=== PATIENT | female | born 1975 | race Caucasian/White ===

== ENCOUNTER 2022-11-11 20:54 | Emergency (ER) | payer MEDICAID, SELFPAY ==
[2022-11-11 20:57] VITALS: BP 169/118; PULSE 97; RESP 16; TEMP 36.6; O2SAT 100
[2022-11-11 21:18] LABS: Bilirubin Negative (Negative); Blood Large (Negative); Clarity Sl Cloudy (Clear); Glucose Negative (Negative); Ketones Negative (Negative); Leukocyte Esterase Large (Negative); Nitrite Negative (Negative); Urobilinogen 0.2 mg/dL (Up to 0.2); pH 6.5 (5-8)
--- NOTE | 2022-11-11 21:18 | ED.GENADUL_ITS ---
Discharge Plan Disposition Patient Disposition: Home Condition: Stable Discharge Details Clinical Impression: UTI (urinary tract infection) Primary Care Provider: None,None ED Provider: Anum Patino Home Meds and New Rx's Prescriptions: New cephalexin 500 mg tablet 500 mg PO BID 4 Days Qty: 8 0RF phenazopyridine [Pyridium] 100 mg tablet 100 mg PO TID PRN (Reason: pain) Qty: 6 0RF Discharge Instructions Instructions: Cephalexin (By mouth), Phenazopyridine (By mouth), Urinary Tract Infection in Women (ED) Additional Instructions: Your labs are concerning for urinary tract infection. Please take the antibiotics as prescribed. Even if symptoms improve, please take the entire course. Please encourage hydration. Please take probiotic or eat yogurt while on the antibiotics. You may use the Pyridium as prescribed to help with symptomatic management. Please make sure you are drinking plenty of fluids. If you develop fever/chills, increased back pain or other new/worsening symptom please seek care urgently once again. I have referred you to local primary care and you should hear from care management regarding follow-up. Please also call women's wellness to schedule follow-up appointment for your routine gynecologic care. Referrals: Jaylin Crum MD [ [facility] STAFF PHYSICIAN] - Medical Decision Making Patient is a pleasant 47-year-old female, otherwise healthy, with chief complaint of urinary frequency, urgency and dysuria. Denies any fevers or chills. States that it began about 3 days ago and has been fairly consistent. States the pain has been low central over the bladder and maximal after the end of urination. Has had a UTI in the past but its been many years since her last 1 and she states that this feels similar. She does endorse some mild back discomfort but no CVA tenderness. denies any vaginal discharge. Has been haivng irregular menses for past year. Sexually active with . On exam, patient appears nontoxic. No peritoneal findings. No CVA tenderness discussion. Will obtain urinalysis. Patient does have allergy to sulfa drugs. She does not have local primary care, will refer to follow-up. UA concerning fro UTI. Will treat with Keflex and pyridium. Encouraged hydration. Discussed supportive care. REturn precautions discussed. Referral to PCP sent. Will send home with meds for this evening until pharmacy open. All of her questions and concerns were addressed, she is in agreement with this plan. HPI General Date/Time Provider Initiated Documentation: 11/11/22 21:07 . Limitations to Documentation: no limitations . Information obtained by: patient and RN notes reviewed . History of Present Illness 47 year old F presents to the emergency department with the chief complaint of Dysuria, increased frequency and urgency, described as moderate and similar to prior episodes (Similar to previous UTI several years ago), w ith intensity rated at 4. Quality is described as burning, and is localized to the pelvis. Patient reports no radiation. Patient started experiencing this day(s) (3) and it has been constant. No relieving factors improve symptom(s), No exacerbating factors reported . Patient notes no other symptoms.. Patient did receive the following treatments prior to arrival, NSAID Related Data Home Medications Medication Instructions Recorded Confirmed cephalexin 500 mg tablet 500 mg PO BID 4 days #8 tabs 11/11/22 phenazopyridine 100 mg tablet 100 mg PO TID PRN pain 6 doses #6 11/11/22 (Pyridium) tabs Previous Rx's Medication Instructions Recorded cephalexin 500 mg tablet 500 mg PO BID 4 days #8 tabs 11/11/22 phenazopyridine 100 mg tablet 100 mg PO TID PRN pain 6 doses #6 11/11/22 (Pyridium) tabs Allergies Allergy/AdvReac Type Severity Reaction Status Date / Time Sulfa (Sulfonamide Allergy Unknown RASH,FEVER Unverified 09/06/20 11:02 Antibiotics) General Stated Complaint: Urinary HÉCTOR: 4 Review of Systems Constitutional Constitutional: Reports as per HPI, Denies chills, Denies fever(s) and Denies poor appetite Cardiovascular Cardiovascular: Denies chest pain Respiratory Respiratory: Denies cough Gastrointestinal Gastrointestinal: Denies abdominal pain, Denies change in bowel habits, Denies nausea and Denies vomiting Genitourinary Genitourinary: Reports as per HPI Musculoskeletal Musculoskeletal: Reports as per HPI Integumentary/Breasts Skin/Breast: Reports as per HPI and Denies rash PFSH All Active Problems (Updated 11/11/22 @ 21:56 by KAN Marinelli) UTI (urinary tract infection) (Acute) Medical History (Updated 11/11/22 @ 21:56 by KAN Marinelli) Abnormal Pap smear of cervix Asthma GERD (gastroesophageal reflux disease) Surgical History (Updated 05/06/18 @ 14:37 by Docracy [place]) Tonsillectomy Family History Mother Diabetes Essential hypertension Diverticulitis Breast cancer Sister Cervical cancer Breast cancer Maternal grandmother Diabetes Breast cancer Maternal aunt Breast cancer Father Pneumonia Maternal grandfather Lung cancer Social History Smoking/Tobacco Use Status: Never Smoking risk assessment performed?: Yes Alcohol Intake: current Alcohol Intake frequency: holidays/special occasions only Drug use: Never Substance use type: does not use Do you feel safe at home: Yes Do you feel safe in your relationship?: Yes Exam Const General: cooperative, healthy appearing, comfortable, no acute distress, well developed and well groomed Nutritional Appearance: well nourished and overweight Orientation: alert and awake Resp Effort & Inspection: normal respiratory effort and no respiratory distress GI Inspection: normal to inspection Palpation: soft, no hepatosplenomegaly, not firm, no guarding, not rigid and nontender Back/Spine/Pelvis Back: no CVA tenderness Skin General skin exam: no rashes or lesions noted Trauma: no lacerations or abrasions Neuro General: patient alert and patient awake Cognition: normal cognition Speech: speech normal Gait: normal gait Psych Appearance: grossly normal and well kempt Mental Status: mental status grossly normal Speech and Movement: speech and movement normal Course Vital Signs Vital signs: Vital Signs Temperature 36.6 C 11/11/22 20:57 Pulse 97 H 11/11/22 20:57 Respiratory Rate 16 11/11/22 20:57 Blood Pressure 169/118 H 11/11/22 20:57 Pulse Oximetry 100 11/11/22 20:57 Temperature 36.6 C 11/11/22 20:57 Temperature Source Temporal Artery Scan 11/11/22 20:57 Pulse 97 H 11/11/22 20:57 Respiratory Rate 16 11/11/22 20:57 Respiratory Effort Normal, Non-Labored 11/11/22 21:12 Blood Pressure 169/118 H 11/11/22 20:57 Blood Pressure Position Sitting 11/11/22 20:57 Pulse Oximetry 100 11/11/22 20:57 Oxygen Delivery Method Room Air 11/11/22 20:57 Oxygen Flow Rate 0 11/11/22 20:57 Pain Level 4 11/11/22 20:57
[2022-11-11 21:26] LABS: Bacteria Many HPF (Negative); C & S Indicated? Yes; Casts Negative LPF (Negative); Crystals Negative HPF (Negative); Epithelial Cells Few HPF (Negative); Mucus Moderate (Negative); WBC >50 HPF (0-5)
[2022-11-11] MEDS: Cephalexin 500 MG CAP, 2 CAPS/BTL PO (22:11)
[2022-11-11] MEDS: Phenazopyridine 100 MG TAB, 2 TABS/BTL PO (22:12)
--- NOTE | 2022-11-12 15:21 | NUR.NOTE ---
Patient needs a PCP, put the referral in the care manger's box for f/u assistance.Nursing Note:
--- NOTE | 2022-11-13 12:44 | CMACTNOTE_ITS ---
- If Service Date Differs Date of service: 11/13/22 Time of Service: 12:44 Care Management Activity Note Sabina is seen in the ED for a UTI. At the request of ED provider, MIKEY coordinates a referral to KAM Moreno, [employer], of [facility], t-doc, to assist Sabina in obtaining a follow up appointment and in establishing care with a PCP. She has Medicaid for insurance.
--- NOTE | 2022-11-14 09:32 | NUR.NOTE ---
Nursing Note: Accessed chart to look up whether or not on antibiotic.
== END 2022-11-11 22:10 | disposition home or self-care (01) ==
PROVIDERS: Emergency Provider Physician Assistant
DX: N39.0 Urinary tract infection, site not specified (principal); J45.909 Unspecified asthma, uncomplicated
CPT/HCPCS: 87077; 99283; 81003; 81015; 87086; 87186; 99284

== ENCOUNTER 2023-12-08 16:44 | Observation (INO) | payer MEDICAID, SELFPAY ==
[2023-12-08] VITALS (26 sets, daily range): BP systolic 129–215; BP diastolic 78–146; PULSE 72–112; RESP 15–27; TEMP 36.6–37.3; O2SAT 96–100
--- NOTE | 2023-12-08 16:30 | DI.CT_ITS ---
Exam(s) CT BRAIN NECK CTA EXAM: CT BRAIN NECK CTA CLINICAL HISTORY: Left arm weakness. TECHNIQUE: Imaging Protocol: Axial CT angiography was performed with multi-slice acquisition and mu lti-planar and MIP reconstructions. CONTRAST MATERIAL: Intravenous: Omnipaque 350 Contrast volume:85 mL COMPARISON: No exams were available for comparison FINDINGS: CT Head W contrast: Ventricles and Extra axial spaces: Normal in size and morphology for the patient's age. Hemorrhage: None. Cerebral parenchyma: No evidence of acute infarct or mass. Midline shift: None. Brainstem/Cerebellum: No acute findings.. Calvarium: Normal. Visualized Paranasal sinuses/Mastoids: Clear. Soft Tissues: Unremarkable. Enhancement: Normal. Dental: Poor dentition. Multiple dental caries. Multiple areas of periapical lucencies. No surroun ding soft tissue abscesses. CTA Brain W: Internal Carotid Arteries: Petrous: Normal. Cavernous: Normal. Cerebral: Normal. Middle Cerebral Arteries: Right: No aneurysm, occlusion or significant stenosis. Left: No aneurysm, occlusion or significant stenosis. Anterior Cerebral Arteries: Right: No aneurysm, occlusion or significant stenosis. Left: No aneurysm, occlusion or significant stenosis. Posterior cerebral Arteries: Right: No aneurysm, occlusion or significant stenosis. Left: No aneurysm, occlusion or significant stenosis. Vertebral Arteries: Right: No aneurysm, occlusion or significant stenosis. Left: No aneurysm, occlusion or significant stenosis. Basilar Artery: No aneurysm, occlusion or significant stenosis. CTA Neck W: Common Carotid: Right: No dissection, occlusion or significant stenosis. Left: No dissection, occlusion or significant stenosis. External Carotid: Right: No dissection, occlusion or significant stenosis. Left: No dissection, occlusion or significant stenosis. Internal Carotid: Right: No dissection, occlusion or significant stenosis. Left: No dissection, occlusion or significant stenosis. Vertebral Artery: Right: No dissection, occlusion or significant stenosis. Left: No dissection, occlusion or significant stenosis. Lung Apices: Normal. Bones: No acute abnormality. Mild degenerative changes. Soft Tissues: Normal. IMPRESSION: 1. CTA brain: Normal CTA examination of the [place]. 2. Head CT: No acute abnormality in the brain. Significant dental disease noted. 3. CTA neck: Normal CTA examination of the neck. RADIATION DOSE DELIVERED: 1,257.77mGy.cm Total DLP DATA REPOSITORY: All CT scans at this facility are submitted to the National Radiology Data Registry (NRDR) Dose Index Registry (DIR) with the [employer] (ACR). RADIATION OPTIMIZATION: All CT scans at this facility use at least one of these dose optimization te chniques: automated exposure control; mA and/or kV adjustment per patient size (includes targeted exa ms where dose is matched to clinical indication); or iterative reconstruction.
--- NOTE | 2023-12-08 16:30 | DI.CT_ITS ---
Exam(s) CT HEAD - STROKE PROTOCOL EXAM: CT HEAD - STROKE PROTOCOL CLINICAL HISTORY: Weakness. TECHNIQUE: Imaging Protocol: Axial computed tomography images with coronal and sagittal reformatted images were created and reviewed COMPARISON: No exams were available for comparison FINDINGS: Ventricles and Extra axial spaces: Normal in size and morphology for the patient's age. Hemorrhage: None. Cerebral parenchyma: No evidence of acute infarct or mass. Midline shift: None. Brainstem/Cerebellum: Normal. Calvarium: Normal. Visualized Paranasal sinuses:Clear. Mastoids: Clear. Soft Tissues: Unremarkable. ORBITS: Unremarkable. PITUITARY: Not enlarged. IMPRESSION: No acute intracranial process. RADIATION DOSE DELIVERED: 684.54mGy.cm Total DLP DATA REPOSITORY: All CT scans at this facility are submitted to the National Radiology Data Registry (NRDR) Dose Index Registry (DIR) with the [employer] (ACR). RADIATION OPTIMIZATION: All CT scans at this facility use at least one of these dose optimization te chniques: automated exposure control; mA and/or kV adjustment per patient size (includes targeted exa ms where dose is matched to clinical indication); or iterative reconstruction.
--- NOTE | 2023-12-08 16:39 | ED.GENADUL_ITS ---
Discharge Plan Disposition Patient Disposition: Admit to [facility] Discharge Details Clinical Impression: Left arm weakness Admit Date/Time: 12/08/23 19:23 Admit Provider: Hill Edmond Attending Provider: Hill Edmond Primary Care Provider: Unknown,Unknown ED Provider: Armando Irwin [facility] General Date/Time Provider Initiated Documentation: 12/08/23 16:46 . HPI Narrative: MDM This is a normothermic and not tachycardic 48-year-old female with left upper extremity weakness progressing over the past 48 hours concerning for the possibility of subacute CVA for which patient will undergo CT angiogram head and neck and dry CT head. Given duration of time since symptoms began patient is not a candidate for tPA. No chest pain to suggest aortic dissection. No pain out of proportion to suggest necrotizing soft tissue infection. No fevers nor nuchal rigidity to suggest meningitis so I do not feel that the patient requires a lumbar puncture. No tonic-clonic activity to suggest seizures I do not feel that the patient requires an EEG. No chest pain so doubt ACS. No rash to suggest zoster. No nystagmus to suggest posterior circulation CVA. Will assess electrolytes and LFTs plus CBC. Will complete tele neuro consult. No ascending weakness to suggest Guillain-Barksdale?. Normal fingerstick blood glucose. Given symptoms progressing over the past 48 hours patient is not a tPA candidate. 5:06 PM CBC lacks anemia thrombocytopenia and leukocytosis. 5:26 PM Negative hCG. 5:30 PM Very mild hypocalcemia. No LFT abnormalities. Mild hyperglycemia but no anion gap and normal bicarbonate??not consistent with DKA. Normal renal function. Normal TSH. Normal reassuring troponin. Very mild hypomagnesemia. 6:15 PM I spoke with Dr. Reed from teleneurology who had assessed the patient. He was concerned about the possibility of stroke for which he recommended MRI brain which I ordered. He advised permissive hypertension for the moment with 324 mg of aspirin. He will fax complete recommendations. He recommends hospitalization for MRI. 7 PM I spoke with Dr. Edmond who agreed graciously to accept the patient for hospitalization. He requested 80 mg of atorvastatin which I ordered and orally currently. I updated the patient on her plan of care. Chronic conditions affecting the care of the patient: N/A History obtained from an outside historian: Paramedics patient's daughter External record review: No [facility] [place] Diagnostic interpretations performed by me: Per my independent interpretation chest x-ray shows: No acute cardiopulmonary process Per my independent interpretation EKG shows: Narrow complex normal sinus rhythm at a rate of 91. Normal axis. Intervals within normal limits. No ST segment abnormalities. T wave flattening in aVL. No acute injury pattern. No prior for comparison. ]Medications: Aspirin Social determinants of health affecting disposition: N/A Management discussed with: Neurology and hospitalist Treatment/interventions considered: N/A Response to therapies provided: N/A HPI This is is a 48-year-old female arrived to the emergency department via paramedics in the setting of left upper extremity weakness that has been progres sing over the past approximately 48 hours. No prior history of similar symptoms. Patient noted that her symptoms worsened when she woke up this morning. He denies dysuria chest pain shortness of breath. She does feel nauseous. She takes no routine medications. She denies ethanol and illicits but does vape tobacco. No fevers. Exam General: Well-appearing in no acute distress speaking in complete sentences. Head: Normocephalic, atraumatic. Eye:[Pupils equal, round reactive to light.] Extraocular eye movements intact. No conjunctival injection. No scleral icterus. Ear, nose, mouth, throat: Grossly normal inspection. Normal voice, handling secretions normally. Neck: Trachea midline. Cardiovascular: Well-perfused distal extremities. Regular rate and rhythm. Respiratory: Nonlabored respiration. Clear lungs bilaterally. Gastrointestinal: Nondistended abdomen. Soft nontender. Musculoskeletal: No edema. Left upper extremity 3-5 strength. Right upper extremity 5 out of 5 strength. Left upper extremity 5 out of 5 strength. Skin: Normal for age and race, grossly normal temperature and turgor. No acute rash. Neurologic: Left upper extremity 3 out of 5 strength. Otherwise right upper extremity and bilateral lower extremities 5 out of 5 strength. No facial droop. No aphasia. No neglect. Please see full NIH stroke scale on neuro assessment. Psychiatric: Mood and manner are appropriate. Grooming and personal hygiene are appropriate. Related Data Home Medications Medication Instructions Recorded Confirmed ibuprofen 200 mg tablet (Advil) 400 mg PO QHS 12/08/23 12/08/23 ibuprofen 200 mg tablet (Advil) 600 mg PO QAM 12/08/23 12/08/23 Allergies Allergy/AdvReac Type Severity Reaction Status Date / Time Sulfa (Sulfonamide Allergy Unknown RASH,FEVER Unverified 12/08/23 17:32 Antibiotics) General HÉCTOR: 4 Medical Decision Making Quality:SDOH Health Related Social Needs: No Data to Display PFSH All Active Problems (Updated 12/08/23 @ 19:03 by Hill Edmond) TIA (transient ischemic attack) (Acute) Left arm weakness (Acute) Medical History Asthma GERD (gastroesophageal reflux disease) Abnormal Pap smear of cervix Surgical History Tonsillectomy Family History Mother Diabetes Essential hypertension Diverticulitis Breast cancer Sister Cervical cancer Breast cancer Maternal grandmother Diabetes Breast cancer Maternal aunt Breast cancer Father Pneumonia Maternal grandfather Lung cancer Social History Smoking/Tobacco Use Status: Current every day Tobacco Type: e-cigarettes Smoking risk assessment performed?: Yes Alcohol Intake: current Alcohol Intake frequency: holidays/special occasions only Drug use: Never Substance use type: does not use Housing: house Do you feel safe at home: Yes Do you feel safe in your relationship?: Yes
--- NOTE | 2023-12-08 16:45 | RT.EKG_ITS ---
APPROVED REPORT Exam: Resting ECG Reason for Exam: Weakness Patient Location: E HR:91 bpm ECG Measurements Heart Rate 91 AXIS ID 141 P 54 QRSd 89 QRS 61 QT 351 T 48 QTc 432 Conclusion Sinus rhythm...normal P axis, V-rate 60- 99 Narrow complex normal sinus rhythm at a rate of 91. Normal axis. Intervals within normal limits. N o ST segment abnormalities. T wave flattening in aVL. No acute injury pattern. No prior for compar apolinar.
--- NOTE | 2023-12-08 16:48 | DI.RAD_ITS ---
Exam(s) XR PORTABLE CHEST AP EXAM: XR PORTABLE CHEST AP CLINICAL HISTORY: Left upper extremity weakness TECHNIQUE: 2D digital imaging was performed. COMPARISON: No exams were available for comparison FINDINGS: LUNGS: Clear. No pleural abnormality seen. HEART: Normal size. AORTA: Normal diameter. BONES: Unremarkable for age. Soft tissues: Unremarkable. IMPRESSION: No acute findings. DATA REPOSITORY: RADIATION DOSE DELIVERED:
[2023-12-08 17:01] LABS: Abs Immature Grans 0.04 10^3/uL (0.0-0.06); Absolute Basophil Count 0.06 10^3/uL (0.0-0.2); Absolute Eosinophil Count 0.22 10^3/uL (0.0-0.7); Absolute Lymphocyte Count 1.43 10^3/uL (1.2-3.4); Absolute Monocyte Count 0.62 10^3/uL (0.1-0.8); Absolute Neutrophil Count 6.21 10^3/uL (1.2-6.7); Basophils % 0.7 %; Eosinophils % 2.6 %; HGB 11.6 g/dL (11.2-15.7); Immature Grans % 0.5 %; Lymphocytes % 16.7 %; MCH 25.8 pg (27.0-33.0); MCHC 32.2 % (32.0-36.0); MCV 80 fL (80-95); MPV 10.3 fL (8.0-11.0); Monocytes % 7.2 %; Neutrophils % 72.3 %; Platelet Count 255 10^3/uL (130-400); RDW 15.4 % (11.7-14.6); RDW-SD 44.7 fL; WBC 8.58 10^3/uL (4.4-10.8)
[2023-12-08] MEDS: Omnipaque 350 MG/ML 100 ML BTL IJ (17:17)
[2023-12-08 17:19] LABS: HCG Qual (Serum) Negative
[2023-12-08] MEDS: Normal Saline - Diluent 50 ML VIAL IJ (17:19)
[2023-12-08 17:29] LABS: ALT 20 U/L (14-59); AST 9 U/L (15-37); Albumin 3.1 g/dL (3.4-5.0); Alkaline Phosphatase 110 U/L (46-116); BUN 12 mg/dL (7-18); Bilirubin, Total 0.3 mg/dL (0.2-1.0); CREATININE 0.7 mg/dL (0.55-1.02); Calcium 8.4 mg/dL (8.5-10.1); Chloride 106 mmol/L (98-107); Estimated GFR 107.95 (mL/min/1.73m2); Glucose 107 mg/dL (74-106); Magnesium 1.7 mg/dL (1.8-2.4); Potassium 3.7 mmol/L (3.5-5.1); Sodium 139 mmol/L (136-145); TSH (W/Ref FT4) 1.14 uIU/mL (0.36-3.74); Troponin I < 50 ng/L (< or =60)
[2023-12-08] MEDS: Normal Saline 500 ML IV (17:34)
[2023-12-08 18:32] LABS: Bilirubin Negative (Negative); Blood Negative (Negative); Clarity Clear (Clear); Glucose Negative (Negative); Ketones Negative (Negative); Leukocyte Esterase Negative (Negative); Nitrite Negative (Negative); Specific Gravity 1.015 (1.005-1.025); Urobilinogen 0.2 mg/dL (Up to 0.2)
--- NOTE | 2023-12-08 19:02 | HPE_ITS ---
Date of service: 12/08/23 Time of Service: 19:02 Assessment and Plan Assessment and plan (1) TIA (transient ischemic attack): Start date: 12/07/23 Status: Acute Assessment and plan: This is a 48-year-old lady with unknown risk for stroke other than tobacco use and obesity. Blood pressure was slightly elevated during her ED visit and she is not on antihypertensives. Because of her presenting symptoms right middle cerebral artery ischemia, she was placed on aspirin with loading dose and high- dose statin with cardiac monitoring overnight for dysrhythmias and follow-up MRI of the brain with echocardiogram and bubble studies in the morning. She is clinically stable and essentially resolved her neurological symptoms. We will have permissive hypertension during this hospital stay for the next 48 to 72 hours. Long-term she should establish with PCP and be evaluated for prediabetes, hypertension long-term and hyperlipidemia. She is a full code. (2) Left arm weakness: Start date: 12/07/23 Status: Acute Assessment and plan: Patient's weakness resolved after visit with the ED and when brought up to the [facility]. She had total left-sided symptoms prior to presentation to the ED. This is in the distribution of the left middle cerebral artery with some element of vertigo and posterior circulation involvement but no visual changes. MRI of the brain will be helpful and long-term she needs to cardiovascular risk. History of Present Illness History of Present Illness Chief Complaint: Sudden onset left sided weakness N arrative: This is a 48-year-old female patient does not see any physician have a history of obesity which is stable and remote history of smoking with vaping presently. She had a history of 2 days of feeling not well with the room spinning when she was laying down but no nausea or vomiting. During the day of admission the patient had left-sided weakness with facial numbness and weakness, left upper extremity and lower extremity weakness but not following. And according to her daughter. She had no headache. She had no incontinence of urine or bowel. She had no syncope. This started at 10 in the morning and lasted till noon then the patient laid down to rest and when she awakened at 2 PM she had residual left upper extremity weakness and facial numbness prompted her to report to the ED. In the emergency room she had decreased strength in left upper extremity being 3 out of 5 with no other focal findings. There is no facial droop and no lower extremity weakness. This the patient her weakness has completely resolved and she had residual left facial numbness or tingling. She had no room spinning or vertiginous symptoms. She still denies headache. CTA of the head and neck were negative for occlusion and patient was admitted for observation with telemetry having unknown medical risk for stroke. Neurology was consulted [facility] and they advised high-dose statin therapy and permissive hypertension. MRI of the brain and echocardiogram with bubble study was ordered for the morning. This is a 69 years old presents to discuss with patient to continue to use patient's stress presents as a persistent for she also was loaded with aspirin and given daily aspirin. She is a full code. Review of Systems Narrative: 13 point review of systems otherwise unrevealing or stable. Patient is obese and this is chronic. PFSH All Active Problems (Updated 12/08/23 @ 19:03 by Hill Edmond) TIA (transient ischemic attack) (Acute) Left arm weakness (Acute) Medical History Asthma GERD (gastroesophageal reflux disease) Abnormal Pap smear of cervix Surgical History Tonsillectomy Family History Mother Diabetes Essential hypertension Diverticulitis Breast cancer Sister Cervical cancer Breast cancer Maternal grandmother Diabetes Breast cancer Maternal aunt Breast cancer Father Pneumonia Maternal grandfather Lung cancer Social History Smoking/Tobacco Use Status: Current every day Tobacco Type: e-cigarettes Smoking risk assessment performed?: Yes Alcohol Intake: current Alcohol Intake frequency: holidays/special occasions only Drug use: Never Substance use type: does not use Housing: house Do you feel safe at home: Yes Do you feel safe in your relationship?: Yes Meds Allergies and Home Medications Allergies Allergy/AdvReac Type Severity Reaction Status Date / Time Sulfa (Sulfonamide Allergy Unknown RASH,FEVER Unverified 12/08/23 17:32 Antibiotics) Home Medications Medication Instructions Recorded Confirmed Type ibuprofen 200 mg tablet (Advil) 400 mg PO QHS 12/08/23 12/08/23 History ibuprofen 200 mg tablet (Advil) 600 mg PO QAM 12/08/23 12/08/23 History Exam Narrative Exam Narrative: General: Patient appears slightly older than age, moderate to morbidly obese. She is in no acute distress. Alert and oriented x 3. HEENT: Normocephalic, coarsened facial features. Eyes with pupils equal and reactive light symmetrically, extraocular movement intact and sclera anicteric. No nystagmus to lateral gaze bilaterally. Oropharynx with moist Koza and poor dentition with missing and carious teeth. Neck: Supple without JVD and no auscultated carotid bruits. Back: Stooped posture without CVA tenderness. Lungs: Aeration and clear to auscultation percussion with no focalizing rales or rhonchi. Breast: Exam deferred. Heart: Regular rate and rhythm with no appreciable murmur or gallop. No rubs. Abdomen: Obese contour, soft nontender to palpation no palpable hepatosplenomegaly. Bowel sounds positive all quadrants. Genitalia/rectal: Exam deferred. Extremities: No clubbing, cyanosis or grossly pitting edema. capillary refill is fair. Skin: Normal color, warm and dry. Neuro: Cranial nerves II through XII grossly intact with tongue protruding in the midline. No focalizing motor deficits and my exam. DTRs are physiologic and symmetrical. No Babinski's. Cerebellar testing was not performed. Psych: Flat affect with depressed mood. No abnormal thought processes. Remote and recent memory intact. Results Imaging Imaging Studies: EXAM: CT BRAIN NECK CTA CLINICAL HISTORY: Left arm weakness. TECHNIQUE: Imaging Protocol: Axial CT angiography was performed with multi- slice acquisition and multi-planar and MIP reconstructions. CONTRAST MATERIAL: Intravenous: Omnipaque 350 Contrast volume:85 mL COMPARISON: No exams were available for comparison FINDINGS: CT Head W contrast: Ventricles and Extra axial spaces: Normal in size and morphology for the patient's age. Hemorrhage: None. Cerebral parenchyma: No evidence of acute infarct or mass. Midline shift: None. Brainstem/Cerebellum: No acute findings.. Calvarium: Normal. Visualized Paranasal sinuses/Mastoids: Clear. Soft Tissues: Unremarkable. Enhancement: Normal. Dental: Poor dentition. Multiple dental caries. Multiple areas of periapical lucencies. No surrounding soft tissue abscesses. CTA Brain W: Internal Carotid Arteries: Petrous: Normal. Cavernous: Normal. Cerebral: Normal. Middle Cerebral Arteries: Right: No aneurysm, occlusion or significant stenosis. Left: No aneurysm, occlusion or significant stenosis. Anterior Cerebral Arteries: Right: No aneurysm, occlusion or significant stenosis. Left: No aneurysm, occlusion or significant stenosis. Posterior cerebral Arteries: Right: No aneurysm, occlusion or significant stenosis. Left: No aneurysm, occlusion or significant stenosis. Vertebral Arteries: Right: No aneurysm, occlusion or significant stenosis. Left: No aneurysm, occlusion or significant stenosis. Basilar Artery: No aneurysm, occlusion or significant stenosis. CTA Neck W: Common Carotid: Right: No dissection, occlusion or significant stenosis. Left: No dissection, occlusion or significant stenosis. External Carotid: Right: No dissection, occlusion or significant stenosis. Left: No dissection, occlusion or significant stenosis. Internal Carotid: Right: No dissection, occlusion or significant stenosis. Left: No dissection, occlusion or significant stenosis. Vertebral Artery: Right: No dissection, occlusion or significant stenosis. Left: No dissection, occlusion or significant stenosis. Lung Apices: Normal. Bones: No acute abnormality. Mild degenerative changes. Soft Tissues: Normal. IMPRESSION: 1. CTA brain: Normal CTA examination of the [place]. 2. Head CT: No acute abnormality in the brain. Significant dental disease noted. 3. CTA neck: Normal CTA examination of the neck. Labs 12/09/23 05:43 12/09/23 05:43 Labs: Laboratory Results - last 24 hr 12/08/23 12/08/23 16:52 18:20 WBC 8.58 RBC 4.50 Hgb 11.6 Hct 36.0 MCV 80 MCH 25.8 L MCHC 32.2 RDW 15.4 H Plt Count 255 MPV 10.3 Immature Gran % 0.5 Neutrophils % 72.3 Lymphocytes % 16.7 Monocytes % 7.2 Eosinophils % 2.6 Basophils % 0.7 Nucleated RBC % 0.0 Absolute Neutrophils 6.21 Absolute Lymphocytes 1.43 Absolute Monocytes 0.62 Absolute Eosinophils 0.22 Absolute Basophils 0.06 Sodium 139 Potassium 3.7 Chloride 106 Carbon Dioxide 24.0 Anion Gap 9.0 BUN 12 Creatinine 0.7 Est GFR (CKD-EPI 2020) 107.95 Glucose 107 H Calcium 8.4 L Magnesium 1.7 L Total Bilirubin 0.3 AST 9 L ALT 20 Alkaline Phosphatase 110 Troponin I < 50 Total Protein 7.0 Albumin 3.1 L TSH 1.14 Serum HCG, Qual Negative Urine Color Yellow Urine Clarity Clear Urine pH 7.0 Ur Specific [place] 1.015 Urine Protein Negative Urine Ketones Negative Urine Blood Negative Urine Nitrite Negative Urine Bilirubin Negative Urine Urobilinogen 0.2 Ur Leukocyte Esterase Negative Urine Glucose Negative Last Vital Signs Temp 36.6 C 12/08/23 17:44 Pulse 93 H 12/08/23 17:30 Resp 15 12/08/23 17:31 BP 176/96 H 12/08/23 17:30 Pulse Ox 100 12/08/23 17:31 Time Spent Time spent with Patient: 55-74 minutes Time was spent: preparing to see the patient(eg.review tests), obtaining and/or reviewing separately otained hiistory, ordering medications,tests, procedures, referring, communicating with other health health care technician, indepentently interpreting results, counseling the patient and care coordination
[2023-12-08] MEDS: Ondansetron O.D.T. 4 MG TABEF PO (19:32)
[2023-12-08] MEDS: Atorvastatin 40 MG TAB 80 MG PO (19:32)
[2023-12-08] MEDS: Aspirin 81 MG CHEW 324 MG CH (19:32)
[2023-12-08] MEDS: Meclizine 25 MG TAB PO (19:33)
[2023-12-08] MEDS: Normal Saline Flush 10 ML SYR IVP (21:24)
[2023-12-08] MEDS: Heparin 5,000 UNITS/ML VIAL 5000 UNITS SC (21:24)
[2023-12-09 02:44] VITALS: BP 124/76; PULSE 75; RESP 16; TEMP 37; O2SAT 98
[2023-12-09 06:18] LABS: HCT 34.8 % (36.0-46.0); HGB 11.3 g/dL (11.2-15.7); MCHC 32.5 % (32.0-36.0); MCV 80 fL (80-95); MPV 10.9 fL (8.0-11.0); Platelet Count 250 10^3/uL (130-400); RBC 4.34 10^6/uL (3.93-5.22); RDW 15.5 % (11.7-14.6); RDW-SD 44.8 fL; WBC 7.68 10^3/uL (4.4-10.8)
[2023-12-09 06:37] LABS: ALT 19 U/L (14-59); AST 11 U/L (15-37); Albumin 2.9 g/dL (3.4-5.0); Alkaline Phosphatase 102 U/L (46-116); Anion Gap 8.6 mmol/L (3-11); BUN 10 mg/dL (7-18); Bilirubin, Total 0.4 mg/dL (0.2-1.0); CO2 25.4 mmol/L (21.0-32.0); CREATININE 0.7 mg/dL (0.55-1.02); Calcium 8.1 mg/dL (8.5-10.1); Chloride 107 mmol/L (98-107); Estimated GFR 107.95 (mL/min/1.73m2); Glucose 91 mg/dL (74-106); Magnesium 1.8 mg/dL (1.8-2.4); Potassium 3.7 mmol/L (3.5-5.1); Sodium 141 mmol/L (136-145); Total Protein 6.6 g/dL (6.4-8.2)
[2023-12-09 07:19] VITALS: BP 128/66; PULSE 77; RESP 18; TEMP 36.9; O2SAT 98
--- NOTE | 2023-12-09 08:00 | DI.US_ITS ---
APPROVED REPORT EXAM: Comprehensive 2D, Doppler, and color-flow Echocardiogram Patient Location: In-Patient Room/Bed: [address] Team Leader: Miladys Boyer RDCS (AE) Indications: TIA with left arm weakness Echo Enhancing Agent Indication: Rule out Shunt Agent(s) / Amount(s) Used: Agitated Saline 30.0 cc Comments: Contrast study was performed with 3 IV injections of 10ccs of agitated normal saline, at re st, with cough and post valsalva maneuver. Negative contrast study for shunt flow. Other Information Study Quality: Adequate. Technically limited study due to body habitus. Conclusion Normal left ventricular wall thickness and chamber size. Ejection fraction is 60%. Wall motion is n ormal Normal right ventricular size and function Both atria are normal in size There is no intracardiac shunt identified with injection of agitated saline There is no structural or hemodynamically significant valvular disease Wall motion Left Ventricle The left ventricle is normal size. The left ventricular systolic function is normal. The left ventric ular ejection fraction is within the normal range. There is normal left ventricular wall thickness. T here is normal LV segmental wall motion. There is no ventricular septal defect visualized. LVEF is 60 %. Right Ventricle The right ventricle is normal size. The right ventricular systolic function is normal. Atria The left atrium size is normal. The right atrium size is normal. The interatrial septum is intact wit h no evidence for an atrial septal defect. Saline bubble contrast intravenous injection does not dem onstrate PFO. Aortic Valve The aortic valve is normal in structure. Aortic valve is trileaflet. There is no aortic valvular sten osis. No aortic regurgitation is present. Mitral Valve The mitral valve is normal in structure. No evidence of mitral valve stenosis. Trace mitral regurgita tion. Tricuspid Valve The tricuspid valve is normal in structure. There is no tricuspid valve stenosis. Trace tricuspid reg urgitation. Unable to assess PA pressure. Pulmonic Valve Pulmonic valve is not well visualized. There is no pulmonic valvular stenosis. There is no pulmonic v alvular regurgitation. Great Vessels The aortic root is normal in size. The ascending aorta is normal in size. Aortic arch is normal in ca liber. IVC is normal in size and collapses >50% with inspiration. Pericardium There is no pericardial effusion. 2D Dimensions IVSD d PLAX 0.76 cm F: 0.6-1.0 Ao Root d 2.83 cm F: 2.7 - 3.3 LVPW d PLAX 0.91 cm F: 0.6 - 1.0 Ao Asc Diam d 3.09 cm F: 2.3 - 3.1 LVID d PLAX 4.58 cm F: 3.8 - 5.2 LVDs 3.15 cm F: 2.2 - 3.5 LV EF Teichholz 58.9 % FS 31.13 % LV EDV (Teich) 96.1 mL LV ESV (Teich) 39.5 mL M-Mode TAPSE 2.07 cm (M/F) >1.7 Auto EF LV EDV A4C 131.1 mL LV EDV A2C 121.3 mL LV EDV BP 126.4 mL LV ESV A4C 54.5 mL LV ESV A2C 49.3 mL LV ESV BP 51.1 mL LVEF(%) A4C 58.5 % LVEF(%) A2C 59.4 % LVEF(%) BP 59.6 % LV SV A4C 76.6 ml LV SV A2C 72.1 ml LV SV BP 75.3 ml LV CO A4C 5.4 L/min LV CO A2C 5.5 L/min LV CO BP 5.4 L/min HR A4C 70.29 BPM HR A2C 76.27 BPM LV EDV Index (BP) LA Volume LA Length A4C 5.7 cm LA Length A2C 4.7 cm LA Area A4C s 18.87 cm2 LA Area A2C s 16.02 cm2 LA Vol A4C A-L 53.44 mL LA Vol A2C A-L 46.76 mL LA Vol Biplane A-L 55.1 mL LA Vol/BSA A4C A-L LA Vol/BSA A2C A-L LA Vol/BSA BP A-L 27.1 mL/m2 LA Vol A4C MOD 50.2 mL LA Vol A2C MOD 43.1 mL LA Vol BP MOD 51.2 mL RA Volume RA Area A4C 11.5 cm2 RA ESV A4C (A-L) 23.9mL RA Vol/BSA A4C A-L RA Length A4C 4.7 cm RA ESV A4C (MOD) 22.3mL LV Diastology MV E' medial 0.128 (>0.07 m/s) MV E Vmax 1.19 (0.4-1.3 m/s) MV E/E' MED 9.28 (<14) MV A Vmax 0.70 (0.4-1.3 m/s) MV E' lateral 0.164 (>0.1 m/s) E/A Ratio 1.7 MV E/E' LAT 7.24 (<14) MV E' Average 0.146 m/s MV E/E'(average) 8.13 Aortic Valve AoV Vmax 1.56 m/s LVOT Vmax 1.46 m/s AoV Peak Grad 9.7 mmHg LVOT Peak Grad 8.5 mmHg AoV Area (Vmax) 2.94 cm2 LVOT VTI 0.282 m AoV VTI 0.319 m LVOT Mean Grad 5.5 mmHg AoV Mean Maldonado. 1.08 m/s LVOT SV 88.57 mL AoV Mean Grad 5.3 mmHg LVOT Diam s 2.00 cm AoV Area (VTI) 2.77 cm2 Velocity Ratio 0.94 Mitral Valve MV DT 192 (160-240 msec) MV Vmax TIPS 1.33 m/s MV Mean Grad 3.1 (<2mmHg) MV VTI 0.379 m Pulmonary Valve PV Vmax 1.44 (0.5-1.5 m/s) RVOT Vmax 1.08 m/s PV Peak Grad 8.3 mmHg RVOT Peak Gr. 4.7 mmHg PV Mean Maldonado 1.03 m/s RVOT VTI 0.215 m PV Mean Grad 4.8 mmHg RVOT Mean Gr. 2.6 mmHg Tricuspid Valve RA Pressure 3.00 mmHg TV S' 0.15 m/s
--- NOTE | 2023-12-09 08:00 | DI.MRI_ITS ---
Exam(s) MR BRAIN WO EXAM: MR BRAIN WO CLINICAL HISTORY: TIA with left arm weakness TECHNIQUE: Multiplanar multisequence MRI of the brain was performed. COMPARISON: CT CT HEAD - STROKE PROTOCOL from 12/08/2023 FINDINGS: VENTRICLES AND EXTRA AXIAL SPACES: Normal in size and morphology for the patient's age. MIDLINE SHIFT: None. CEREBRAL PARENCHYMA: No focus of restricted diffusion to suggest acute infarct. No space-occupying le lisbeth identified. No abnormal high signal lesions in the white matter. HEMORRHAGE: None. BRAINSTEM/CEREBELLUM: Normal. VISUALIZED PARANASAL SINUSES/MASTOIDS:Clear. Vasculature: Normal flow void. PITUITARY GLAND: Unremarkable. ORBITS: Unremarkable. IMPRESSION: Unremarkable MRI of the brain. DATA REPOSITORY:
[2023-12-09] MEDS: Aspirin 81 MG CHEW PO (08:03)
[2023-12-09] MEDS: Normal Saline Flush 10 ML SYR IVP (08:04)
--- NOTE | 2023-12-09 09:39 | PGE_ITS ---
Date of Service Date of service: 12/09/23 Time of Service: 09:39 Assessment and Plan Assessment and plan (1) TIA (transient ischemic attack): Start date: 12/07/23 Status: Acute Assessment and plan: This is a 48-year-old lady with unknown risk for stroke other than tobacco use and obesity. Blood pressure was slightly elevated during her ED visit and she is not on antihypertensives. Because of her presenting symptoms right middle cerebral artery ischemia, she was placed on aspirin with loading dose and high- dose statin with cardiac monitoring overnight for dysrhythmias and follow-up MRI of the brain with echocardiogram and bubble studies in the morning. She is clinically stable and essentially resolved her neurological symptoms. We will have permissive hypertension during this hospital stay for the next 48 to 72 hours. Long-term she should establish with PCP and be evaluated for prediabetes, hypertension long-term and hyperlipidemia. She is a full code. (2) Left arm weakness: Start date: 12/07/23 Status: Acute Assessment and plan: Patient's weakness resolved after visit with the ED and when brought up to the [facility]. She had total left-sided symptoms prior to presentation to the ED. This is in the distribution of the left middle cerebral artery with some element of vertigo and posterior circulation involvement but no visual changes. MRI of the brain will be helpful and long-term she needs to cardiovascular risk. Objective Last Vital Signs Temp 36.9 C 12/09/23 07:19 Pulse 77 12/09/23 07:19 Resp 18 12/09/23 07:19 BP 128/66 12/09/23 07:19 Pulse Ox 98 12/09/23 07:19 Laboratory Results - last 24 hr 12/08/23 12/08/23 12/09/23 16:52 18:20 05:43 WBC 8.58 7.68 RBC 4.50 4.34 Hgb 11.6 11.3 Hct 36.0 34.8 L MCV 80 80 MCH 25.8 L 26.0 L MCHC 32.2 32.5 RDW 15.4 H 15.5 H Plt Count 255 250 MPV 10.3 10.9 Immature Gran % 0.5 Neutrophils % 72.3 Lymphocytes % 16.7 Monocytes % 7.2 Eosinophils % 2.6 Basophils % 0.7 Nucleated RBC % 0.0 Absolute Neutrophils 6.21 Absolute Lymphocytes 1.43 Absolute Monocytes 0.62 Absolute Eosinophils 0.22 Absolute Basophils 0.06 Sodium 139 141 Potassium 3.7 3.7 Chloride 106 107 Carbon Dioxide 24.0 25.4 Anion Gap 9.0 8.6 BUN 12 10 Creatinine 0.7 0.7 Est GFR (CKD-EPI 2020) 107.95 107.95 Glucose 107 H 91 Calcium 8.4 L 8.1 L Magnesium 1.7 L 1.8 Total Bilirubin 0.3 0.4 AST 9 L 11 L ALT 20 19 Alkaline Phosphatase 110 102 Troponin I < 50 Total Protein 7.0 6.6 Albumin 3.1 L 2.9 L TSH 1.14 Serum HCG, Qual Negative Urine Color Yellow Urine Clarity Clear Urine pH 7.0 Ur Specific [place] 1.015 Urine Protein Negative Urine Ketones Negative Urine Blood Negative Urine Nitrite Negative Urine Bilirubin Negative Urine Urobilinogen 0.2 Ur Leukocyte Esterase Negative Urine Glucose Negative
--- NOTE | 2023-12-09 09:42 | DSE_ITS ---
Date of service: 12/09/23 Time of Service: 09:42 DS: Diagnosis Discharge Diagnosis (1) TIA (transient ischemic attack): Status: Acute (2) Left arm weakness: Status: Acute Discharge Plan Disposition Patient Disposition: Home Condition: Improving Discharge Details Reason For Visit: TIA with left arm weakness Admit Date/Time: 12/08/23 19:23 Admit Provider: Hill Edmond Attending Provider: Hill Edmond Primary Care Provider: Unknown,Unknown Hospital Course Hospital Course: This 48-year-old morbidly obese female patient with a past medical history of reported post-gestational eclampsia, remote tobacco use, currently vaping reported to the ED at [facility] on 12/08/2023 for evaluation of left-sided weakness with facial numbness and weakness, left upper extremity and lower extremity weakness without fall. The patient reported today history of malaise with the room spinning when laying down but without nausea or vomiting. On arrival to the emergency room the patient was found to have decreased strength at 3/5 to left upper extremity without any other focal findings. Her systolic blood pressure ranged from 144-215 with a diastolic ranging from 93-1 [address] emergency room. CT of the head and neck were negative for occlusion and stenosis. Neurology at [facility] was consulted and advised for high-dose statin therapy and permissive hypertension. The patient was admitted by the hospitalist for observation with telemetry. Echocardiogram ultrasound with bubble study showed no abnormal findings and an LVEF of 60%. Completed MRI of the brain was unremarkable. Hemoglobin A1C was 5.6. Telemetry reading overnight showed no ectopy as the patient remained in a normal sinus rhythm. The patient reported having frequent headaches without a diagnostic of migraine. Those episodes reportedly preceded other events with similar presentation that triggered her to come to the emergency room. Today, the patient is normotensive, neurologically at baseline with resolution of all are focal symptoms. Triglycerides were 155 and patient counseled to address modifiable causes. The patient was counseled on the need to obtain a PCP for weight, prediabetes, hyperlipidemia and hypertension management, as those are factors know to increase the risk of stroke. The patient will need to follow with a primary care practitioner within 7 days of discharge. Discussed with Dr. Montoya Home Meds and New Rx's Prescriptions: Continued ibuprofen [Advil] 200 mg tablet 600 mg PO QAM ibuprofen [Advil] 200 mg tablet 400 mg PO QHS Discharge Instructions Stand Alone Forms: Nursing Discharge Form Referrals: Jacque Bush MD [ [facility] STAFF PHYSICIAN] - Activity:: Activity as Tolerated Equipment/Supplies:: No Equipment Needed Diet:: heart healthy Discharge Orders Discharge Orders: Discharge Order (Routine); Ordered 12/09/23 Ordered By: Ella Quintero DS: Summary Time Spent with Patient providing and/or coordinating discharge services: Greater than 30 minutes Status at Discharge Functional status at discharge: independent ambulation Overall status at discharge: patient is back to baseline Mental Status: mental status grossly normal Speech and Movement: speech and movement normal Mood: congruent mood Affect: normal affect Quality:SDOH Health Related Social Needs: No Data to Display Exam Narrative Exam Narrative: Constitutional The patient is sitting in bed mostly comfortable reports chronic neck pain with movement, usually takes ibuprofen at home and agrees to receive the ibuprofen offered The patient is without acute distress and has obese body habitus HENMT: Head is atraumatic, normocephalic, no lymphadenopathy. Facial structures with normal appearance Eyes: Well aligned, intact ROM Neck: Normal ROM Neuro:alert and oriented to self, person, place, time and situation. No neurological focal deficit, PERRLA on ambient light Resp: Normal respiratory pattern, speaks in full sentences, clear lung bilaterally Cardio:Tele SR HR 65 regular rhythm, S1, S2, no murmur, capillary refill<3 sec., bilateral radial and dorsalis pedis pulses are positive, palpable GI: Abdomen is not distended, soft and non tender, bowel sounds are present Back/spine/Pelvis: No back tenderness, normal alignment Integumentary: No skin lesions or rash Extremities: strength 5/5 to bilateral lower and upper extremities Psych: RASS 0, congruent mood and normal affect. Psych Mental Status: mental status grossly normal Speech and Movement: speech and movement normal Mood: congruent mood Affect: normal affect DS: Data Vitals/I&O Vitals and I&O: Vital Signs Temperature 36.9 C 12/09/23 07:19 Temperature Source Tympanic 12/09/23 07:19 Pulse 77 12/09/23 07:19 Pulse Rhythm Regular 12/09/23 00:25 Pulse 90 12/08/23 20:07 Respiratory Rate 18 12/09/23 07:19 Respiratory Effort Normal, Non-Labored 05/21/24 00:25 Respiratory Depth Normal 12/09/23 00:25 Respiratory Pattern Normal 12/09/23 00:25 Blood Pressure 128/66 12/09/23 07:19 Blood Pressure Mean 155 12/08/23 18:16 Blood Pressure Position Supine 12/08/23 16:48 Pulse Oximetry 98 12/09/23 07:19 Oxygen Delivery Method Room Air 12/09/23 07:19 Oxygen Flow Rate 0 12/09/23 07:19 Pain Level 0 12/09/23 07:19 Intake & Output 12/08/23 12/08/23 12/09/23 11:59 23:59 11:59 Intake Total 500 / 500 Balance 500 / 500 Weight 99.79 kg 122.6 kg Intake: IV 500 / 500 Other: Comment per patient she hasbeen up to void pT stated she voided. Voiding Methods Toilet Data Completed and Pending Labs on day of discharge: Labs from last 24 hours 12/09/23 12/08/23 12/08/23 05:43 18:20 16:52 WBC 7.68 8.58 RBC 4.34 4.50 Hgb 11.3 11.6 Hct 34.8 L 36.0 MCV 80 80 MCH 26.0 L 25.8 L MCHC 32.5 32.2 RDW 15.5 H 15.4 H Plt Count 250 255 MPV 10.9 10.3 Immature Gran % 0.5 Neutrophils % 72.3 Lymphocytes % 16.7 Monocytes % 7.2 Eosinophils % 2.6 Basophils % 0.7 Nucleated RBC % 0.0 Absolute Neutrophils 6.21 Absolute Lymphocytes 1.43 Absolute Monocytes 0.62 Absolute Eosinophils 0.22 Absolute Basophils 0.06 Sodium 141 139 Potassium 3.7 3.7 Chloride 107 106 Carbon Dioxide 25.4 24.0 Anion Gap 8.6 9.0 BUN 10 12 Creatinine 0.7 0.7 Est GFR (CKD-EPI 2020) 107.95 107.95 Glucose 91 107 H Calcium 8.1 L 8.4 L Magnesium 1.8 1.7 L Total Bilirubin 0.4 0.3 AST 11 L 9 L ALT 19 20 Alkaline Phosphatase 102 110 Troponin I < 50 Total Protein 6.6 7.0 Albumin 2.9 L 3.1 L TSH 1.14 Serum HCG, Qual Negative Urine Color Yellow Urine Clarity Clear Urine pH 7.0 Ur Specific [place] 1.015 Urine Protein Negative Urine Ketones Negative Urine Blood Negative Urine Nitrite Negative Urine Bilirubin Negative Urine Urobilinogen 0.2 Ur Leukocyte Esterase Negative Urine Glucose Negative PFSH All Active Problems (Updated 12/08/23 @ 19:03 by Hill Edmond) TIA (transient ischemic attack) (Acute) Left arm weakness (Acute) Medical History Asthma GERD (gastroesophageal reflux disease) Abnormal Pap smear of cervix Surgical History Tonsillectomy Family History Mother Diabetes Essential hypertension Diverticulitis Breast cancer Sister Cervical cancer Breast cancer Maternal grandmother Diabetes Breast cancer Maternal aunt Breast cancer Father Pneumonia Maternal grandfather Lung cancer Social History Smoking/Tobacco Use Status: Current every day Tobacco Type: e-cigarettes Smoking risk assessment performed?: Yes Alcohol Intake: current Alcohol Intake frequency: holidays/special occasions only Drug use: Never Substance use type: does not use Housing: house Do you feel safe at home: Yes Do you feel safe in your relationship?: Yes Time Spent with Patient Time Spent with Patient: 45-69 minutes Time was spent: preparing to see the patient(eg.review tests), obtaining and/or reviewing separately otained hiistory, ordering medications,tests, procedures, referring, communicating with other health home care nurse, indepentently interpreting results, counseling the patient and care coordination
[2023-12-09] MEDS: Ibuprofen 400 MG TAB PO (10:55)
[2023-12-09] MEDS: Heparin 5,000 UNITS/ML VIAL 5000 UNITS SC (10:55)
[2023-12-09 11:48] LABS: Lab Add On Test DONE
[2023-12-09 12:02] LABS: Calculated LDL 58 mg/dL (<100); Cholesterol 130 mg/dL (<200); HDL Cholesterol 41 mg/dL (40-60); Triglyceride 155 mg/dL (<150)
[2023-12-09 12:21] LABS: Hemoglobin A1C 5.6 % (<5.7)
[2023-12-09 12:29] VITALS: BP 143/83; PULSE 81; RESP 18; TEMP 36.8; O2SAT 99
== END 2023-12-09 13:07 | disposition home or self-care (01) ==
LOC: ER 19:02 → MS 22:17
PROVIDERS: Nurse Practitioner Acute Care; Admitting Provider Family Medicine; Emergency Provider Emergency Medicine; Visit Provider Family Medicine
DX: G45.9 Transient cerebral ischemic attack, unspecified (principal); R29.818 Other symptoms and signs involving the nervous system; R53.1 Weakness; K21.9 Gastro-esophageal reflux disease without esophagitis; J45.909 Unspecified asthma, uncomplicated; F17.290 Nicotine dependence, other tobacco product, uncomplicated; R73.03 Prediabetes; E78.5 Hyperlipidemia, unspecified; I10 Essential (primary) hypertension; Z68.42 Body mass index [BMI] 45.0-49.9, adult
CPT/HCPCS: 00123; 36415; 36416; 70496; 70498; 80053; 80061; 82962; 85027; 93005; 96360; 96372; 99285; 70450; 70551; 71045; 81003; 83036; 83735; 84443; 84484; 84703; 85025; 93010; 93306; 99222; 99239; G0378; J1644; J3490

== ENCOUNTER 2025-01-24 20:57 | Emergency (ER) | payer MEDICAID, SELFPAY ==
[2025-01-24 20:58] VITALS: BP 190/101; PULSE 93; RESP 18; TEMP 36.7; O2SAT 99
[2025-01-24] MEDS: Simethicone/Sod Bicarb/Cit Ac, 4 gram PACKET 1 PACKET (21:15)
[2025-01-24 21:46] VITALS: BP 180/90; PULSE 84; RESP 18; TEMP 36.7; O2SAT 100
--- NOTE | 2025-01-25 17:21 | ED.GENADUL_ITS ---
Discharge Plan Disposition Patient Disposition: Home Condition: Stable Discharge Details Clinical Impression: Esophageal foreign body Primary Care Provider: None,None ED Provider: Shavon Harding Home Meds and New Rx's Prescriptions: Discontinued hydrochlorothiazide 25 mg tablet 25 mg PO DAILY Qty: 90 0RF metformin 500 mg tablet extended release 24 hr 500 mg PO QPM Qty: 90 3RF ibuprofen [Advil] 200 mg tablet 600 mg PO QAM ibuprofen [Advil] 200 mg tablet 400 mg PO QHS Discharge Instructions Instructions: Foreign Body, Swallowed, Adult Additional Instructions: please f/u with pcp referral we will call you with follow-up with surgery referral for EGD return with any new or worsening complaints blood pressure rechecked by pcp smooth foods and fluids only for the next 24 hours Referrals: Keshawn Graves MD [ [facility] STAFF PHYSICIAN, Surgery] Discharge Data Discharge Date/Time-TO BE ENTERED AT DEPARTURE: 01/24/25 22:03 HPI General Date/Time Provider Initiated Documentation: 01/24/25 21:06 . HPI Narrative: 49-year-old female with foreign body sensation in throat for 0500 hours after eating chicken. Unable to drink since incident. No chest pain or shortness of breath. No primary care doctor. Related Data Allergies Allergy/AdvReac Type Severity Reaction Status Date / Time Sulfa (Sulfonamide Allergy Unknown RASH,FEVER Verified 01/24/25 21:04 Antibiotics) General Stated Complaint: ThroatFB HÉCTOR: 3 Exam Narrative Exam Narrative: General Appearance: Alert and oriented, normal affect. Vital signs: Within normal limits. HEENT: No foreign body in oropharynx. No stridor. Respiratory: Lungs clear to auscultation. Cardiovascular: Heart sounds normal. Skin: Warm and dry, no rash. Neurological: Normal. Course Vital Signs Vital signs: Vital Signs Temperature 36.7 C 01/24/25 20:58 Pulse 93 H 01/24/25 20:58 Respiratory Rate 18 01/24/25 20:58 Blood Pressure 190/101 H 01/24/25 20:58 Pulse Oximetry 99 01/24/25 20:58 Temperature 36.7 C 01/24/25 21:46 Temperature Source Oral 01/24/25 20:58 Pulse 84 01/24/25 21:46 Respiratory Rate 18 01/24/25 21:46 Respiratory Effort Normal, Non-Labored 01/24/25 21:16 Respiratory Pattern Normal 01/24/25 21:16 Blood Pressure 180/90 H 01/24/25 21:46 Blood Pressure Position Sitting 01/24/25 20:58 Pulse Oximetry 100 01/24/25 21:46 Oxygen Delivery Method Room Air 01/24/25 20:58 Oxygen Flow Rate 0 01/24/25 20:58 Pain Level 0 01/24/25 20:58 Medical Decision Making Initial Assessment: 49-year-old female presents with foreign body in esophagus for the past 5 hours after eating chicken. Unable to drink since incident. No chest pain or shortness of breath. Alert and oriented, maintaining secretions. Lungs clear to auscultation. Answering questions appropriately. No stridor. Effort crystals ordered and patient was able to pass the esophageal foreign body and is now able to tolerate p.o. Slight discomfort but feels improved. Lungs remain clear to auscultation. ED Course: - Effort crystals ordered. - Patient passed esophageal foreign body and is now able to tolerate p.o. - Encouraged to have smooth foods only and avoid meat for the next several days. - Reviewed return precautions in detail, patient expressed understanding. - Referral for primary care physician and EGD with surgery made. Final Assessment: Patient presented with esophageal foreign body and was unable to drink. After intervention, patient passed the foreign body and is now able to tolerate p.o. Advised to have smooth foods only and avoid meat for several days. Referral for primary care physician and EGD with surgery made. Clinical Impression: - Esophageal foreign body Disposition: - Discharge - Referral for primary care physician and EGD with surgery Patient Education: Encouraged to have smooth foods only and avoid meat for the next several days. Reviewed return precautions in detail, patient expressed understanding. MDM Components Evaluation: - Number of Differential Diagnoses or Management Options: Esophageal foreign body - Amount and Complexity of Data Reviewed: Effort crystals ordered - Risk of Complication and Morbidity or Mortality: Recurrent issue, likely needs endoscopy PFSH All Active Problems (Updated 01/24/25 @ 21:38 by KAN Dia) Esophageal foreign body (Acute) Morbid obesity with body mass index of 40.0-44.9 in adult (Acute) Essential hypertension (Acute) Left arm weakness (Acute) with paresthesias, neck pain Medical History (Updated 01/24/25 @ 21:38 by KAN Dia) Asthma GERD (gastroesophageal reflux disease) Abnormal Pap smear of cervix had colposcopy; last pap in 2017 Surgical History Tonsillectomy Family History (Updated 12/12/23 @ 15:27 by Jacque Bush MD) Mother , age 71 Diabetes Essential hypertension Diverticulitis Breast cancer Kidney failure Sister Cervical cancer Breast cancer Maternal grandmother Diabetes Breast cancer Colon cancer Maternal aunt Breast cancer Father , age 65 Pneumonia Maternal grandfather Lung cancer Sister Breast cancer Kidney failure Hypertension Social History (Updated 12/12/23 @ 15:24 by Jacque Bush MD) Smoking/Tobacco Use Status: Current every day Tobacco Type: e-cigarettes Smoking risk assessment performed?: Yes Alcohol Intake: current Alcohol Intake frequency: holidays/special occasions only Alcohol type: beer Drug use: Never Substance use type: does not use Household members: spouse and children Housing: house Number of Children: 6 Education Level: high school Details: 11th grade 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 PAWSS Have you Been Recently Intoxicated or Drunk Within the Last 30 days?: No Have you Ever Experienced Previous Episodes of Alcohol Withdrawal?: No Have you ever Experienced Withdrawal Seizures?: No Have you ever Experienced Delirium Tremens(DT)s?: No Have you ever undergone Alcohol Rehabilitation Treatment (i.e, inpt ot outpatient treatment programs)?: No Have you ever Experienced Blackouts?: No Have you ever Combined Alcohol with other Downers within the last 90 days?: No Have you ever Combined Alcohol with any other Substance of Abuse during the last 90 days?: No Positive Blood Alcohol level on Presentation? [PCS.BAL]: No Evidence of Increased Autonomic Activity (i.e. HR>120, tremor, sweating, agitation, nausea)?: No Result: 0
== END 2025-01-24 22:03 | disposition home or self-care (01) ==
LOC: ER 22:01
PROVIDERS: Emergency Provider Physician Assistant
DX: T18.128A Food in esophagus causing other injury, initial encounter (principal); E66.01 Morbid (severe) obesity due to excess calories; I10 Essential (primary) hypertension; Z68.41 Body mass index [BMI] 40.0-44.9, adult; W44.F3XA Food entering into or through a natural orifice, initial encounter; Y93.89 Activity, other specified; Y92.511 Restaurant or cafe as the place of occurrence of the external cause; F17.290 Nicotine dependence, other tobacco product, uncomplicated
CPT/HCPCS: 99283